=== PATIENT | male | born 1975 | race Caucasian/White ===

== ENCOUNTER 2018-03-09 15:02 | Emergency (ER) | payer OTHER ==
[2018-03-09 15:09] VITALS: BP 124/76
--- NOTE | 2018-03-09 15:27 | ED Physician Documentation ---
PD HPI LOWER EXT INJURY - Stated complaint Stated Complaint: R PINKY TOE PX - Chief complaint Chief Complaint: Ext Problem - History obtained from History obtained from: Patient - History of Present Illness PD HPI LOW EXT INJURY LOCATION: Right (Stubbed his right pinky toe this morning around 9 AM with progressive pain and swelling but declines pain medication.) Review of Systems Constitutional: reports: Reviewed and negative Cardiac: reports: Reviewed and negative Respiratory: reports: Reviewed and negative PD PAST MEDICAL HISTORY - Past Surgical History Past Surgical History: No - Allergies Allergies/Adverse Reactions: Allergies Allergy/AdvReac Type Severity Reaction Status Date / Time No Known Drug Allergies Allergy Verified 03/09/18 15:07 - Social History Does the pt smoke?: No Smoking Status: Never smoker Does the pt drink ETOH?: Yes Does the pt have substance abuse?: No - Immunizations Immunizations are current?: Yes - POLST Patient has POLST: No PD ED PE NORMAL - Vitals Vital signs reviewed: Yes - General General: Alert and oriented X 3, No acute distress - Extremities Extremities: Other (The right pinky toe is swollen but not deformed. Black and blue on the bottom.) - Neuro Neuro: Alert and oriented X 3, Normal speech Results - Vitals Vitals: Vital Signs - 24 hr 03/09/18 15:04 Temperature 36.4 C L Heart Rate 62 Respiratory 16 Rate Blood Pressure 124/76 O2 Saturation 97 Oxygen O2 Source Room air - Rads (name of study) R foot Radiology: EMP read contemporaneously (5th distal phalanx frx) Departure - Departure Disposition: 01 Home, Self Care Clinical Impression: Toe fracture, right Qualifiers: Encounter type: initial encounter Toe: lesser toe Fracture type: closed Phalanx: distal Fracture alignment: nondisplaced Qualified Code(s): S92.534A - Nondisplaced fracture of distal phalanx of right lesser toe(s), initial encounter for closed fracture Condition: Good Record reviewed to determine appropriate education?: Yes Instructions: ED Fx Toe Closed Comments: Yomi taped and wear the special shoe. Follow-up with your flight surgeon. Let him or her know that you have a broken toe.
--- NOTE | 2018-03-09 15:48 | XRAY Report ---
Reason: trauma to right 5th toe, jammed it. swelling Procedure Date: 03/09/2018 Accession Number: [id number] / [id number] Procedure: XR - Foot 3 View RT CPT Code: FULL RESULT: EXAM: RIGHT FOOT RADIOGRAPHY EXAM DATE: 03/09/2018 03:37 PM. CLINICAL HISTORY: Trauma to right 5th toe, jammed it. swelling. COMPARISON: None. TECHNIQUE: 3 views. FINDINGS: Bones: Mildly complex fracture is seen involving the distal tuft and proximal medial aspect of the right fifth distal phalanx with extent into the DIP joint. No dislocation. Joints: Normal. No subluxations. Soft Tissues: Soft tissue swelling. IMPRESSION: 1. Right fifth distal phalanx fracture. RADIA
== END 2018-03-09 16:07 | disposition home or self-care (01) ==
LOC: ED 15:02
DX: S92.534A Nondisplaced fracture of distal phalanx of right lesser toe(s), initial encounter for closed fracture (principal); W22.09XA Striking against other stationary object, initial encounter
CPT/HCPCS: 99282; 99283

== ENCOUNTER 2019-03-26 09:30 | Outpatient (CLI) | payer OTHER ==
--- NOTE | 2019-03-26 15:17 | MRI Report ---
Reason: PAIN IN RT WRIST Procedure Date: 03/26/2019 Accession Number: [id number] / [id number] Procedure: MRI - Wrist RT W/O CPT Code: Final Report FULL RESULT: EXAM: RIGHT WRIST MRI WITHOUT CONTRAST. EXAM DATE: 03/26/2019 10:30 AM. CLINICAL HISTORY: Pain in right wrist. COMPARISON: None. TECHNIQUE: Multiplanar, multisequence T1-weighted and fluid-sensitive sequences of the wrist without contrast. Other: None. FINDINGS: Bones and articular surfaces: Moderate cartilage thinning, subchondral edema and marginal osteophytes at the distal scaphoid articulations. Small marginal osteophytes at the 1st CMC joint. A dorsal tilt of the lunate. Lunate capitate angle 42 degrees. Scapholunate angle 78.5 degrees. Bones and articular surfaces: Visualized flexor and extensor tendons appear intact. No evidence of significant tendinosis or tenosynovitis. No significant muscle edema, atrophy or fatty replacement within the field of view. Ligaments: No scapholunate or lunatotriquetral diastases. Triangular fibrocartilage grossly intact. IMPRESSION: 1. 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 2. Mild osteoarthritis at the 1st CMC articulation. 3. Dorsal tilt of the lunate with suggestion of dorsal intercalated segment instability pattern. RADIA
== END 2019-03-26 09:31 | disposition home or self-care (01) ==
LOC: DI 09:30
PROVIDERS: ATTEND Student in an Organized Health Care Education/Training Program
DX: M19.031 Primary osteoarthritis, right wrist (principal)